=== PATIENT | female | born 1995 | race Caucasian/White ===

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

== ENCOUNTER 2017-01-12 18:09 | Emergency (ER) | payer MEDICAID, OTHER ==
--- NOTE | 2017-01-12 19:11 | ER Document Report ---
ED ENT - General Chief Complaint: Sore Throat Stated Complaint: SORE THROAT Time Seen by Provider: 01/12/17 18:46 Mode of Arrival: Medic Information source: Patient Notes: 21-year-old female presents to ED for complaint of sore throat, bilateral earache, runny nose, cough, and diarrhea 2 days. She denies any fever. States she did not have any thing for pain. States she is allergic to ibuprofen. TRAVEL OUTSIDE OF THE [place] IN LAST 30 DAYS: No - HPI Patient complains to provider of: Ear problem, Nose problem, Throat problem Onset: Other - 2 days Onset/Duration: Gradual Quality of pain: Achy, Sharp Severity: Moderate Context: Recent Illness Location of pain: Ears, Nose, Sinus, Other Associated symptoms: Cough, Ear pain, Runny nose, Sinus pain, Sinus drainage, Sore throat, Other - Diarrhea. denies: Fever Similar symptoms previously: Yes Recently seen / treated by doctor: No - Related Data Allergies/Adverse Reactions: ibuprofen Allergy (Verified 01/12/17 18:19) lamotrigine [From Lamictal] Allergy (Verified 01/12/17 18:19) Penicillins Allergy (Verified 01/12/17 18:19) Past Medical History - General Information source: Patient - Social History Smoking Status: Current Every Day Smoker Cigarette use (# per day): Yes - Half a pack a day Chew tobacco use (# tins/day): No Smoking Education Provided: Yes - Less than 2 minutes Frequency of alcohol use: None Drug Abuse: None Occupation: None Lives with: Family Family History: Malignancy. denies: Arthritis, CAD, COPD, CVA, DM, Hyperlipidemia, Hypertension, Thyroid Disfunction Patient has suicidal ideation: No Patient has homicidal ideation: No Renal/ Medical History: Denies: Hx Peritoneal Dialysis - Immunizations Hx Diphtheria, Pertussis, Tetanus Vaccination: - unknown Physical Exam - Vital signs Vitals: Temp Pulse Resp BP Pulse Ox 98.4 F 86 18 125/91 H 99 01/12/17 18:19 01/12/17 18:19 01/12/17 18:19 01/12/17 18:19 01/12/17 18:19 Interpretation: Normal - General General appearance: Appears well, Alert - HEENT Head: Normocephalic, Atraumatic Eyes: Normal Pupils: PERRL Ears: Normal External canal: Normal Tympanic membrane: Injected. No: Bulging, Loss of landmarks, Perforation, Retracted, Serous effusion Sinus: Normal Nasal: Purulent discharge, Swelling Mouth/Lips: Normal Mucous membranes: Normal Pharynx: Post nasal drainage. No: Erythema, Exudate Neck: Normal - Respiratory Respiratory status: No respiratory distress Chest status: Nontender Breath sounds: Nonproductive cough Chest palpation: Normal - Cardiovascular Rhythm: Regular Heart sounds: Normal auscultation Murmur: No - Abdominal Inspection: Normal Distension: No distension Bowel sounds: Normal Tenderness: Nontender Organomegaly: No organomegaly - Back Back: Normal, Nontender - Extremities General upper extremity: Normal inspection, Nontender, Normal color, Normal ROM , Normal temperature General lower extremity: Normal inspection, Nontender, Normal color, Normal ROM , Normal temperature, Normal weight bearing. No: Neli's sign - Neurological Neuro grossly intact: Yes Cognition: Normal Orientation: AAOx4 Osbaldo Coma Scale Eye Opening: Spontaneous [place]baldo Coma Scale Verbal: Oriented [place] Coma Scale Motor: Obeys Commands [place] Coma Scale Total: 15 Speech: Normal Motor strength normal: LUE, RUE, LLE, RLE Sensory: Normal - Psychological Associated symptoms: Normal affect, Normal mood - Skin Skin Temperature: Warm Skin Moisture: Dry Skin Color: Normal Course - Re-evaluation Re-evalutation: 01/12/17 20:07 Discussed strep test results with patient. Patient given Tylenol and Decadron for her sore throat that makes it difficult for her to swallow. Will discharge home to follow-up with her primary doctor. - Vital Signs Vital signs: Temp Pulse Resp BP Pulse Ox 98.4 F 86 18 125/91 H 99 01/12/17 18:19 01/12/17 18:19 01/12/17 18:19 01/12/17 18:19 01/12/17 18:19 Discharge - Discharge Clinical Impression: Viral sore throat URI (upper respiratory infection) Qualifiers: URI type: unspecified URI Qualified Code(s): J06.9 - Acute upper respiratory infection, unspecified Disposition: HOME, SELF-CARE Instructions: Family Physicians / Practices Additional Instructions: UPPER RESPIRATORY ILLNESS: You have a viral infection of the respiratory passages -- a "cold." This common infection causes nasal congestion, drainage, and often sore throat and cough. It is highly contagious. The disease usually lasts about 10 to 14 days. There is no "cure" for the viral infection -- it must run its course. If there is a complication, such as bacterial infection in the nose, sinuses, middle ear, or bronchial tubes, antibiotics may be required. The antibiotics won't affect the virus. Drink plenty of fluids. A humidifier may help. An expectorant medication or decongestant may make you more comfortable. Use acetaminophen or ibuprofen for fever or aches. See the doctor if fever persists over two days, if there is any significant worsening of your symptoms, or if you simply fail to improve as expected. STEROID MEDICATION: You have been given an injection of or oral medicine of the cortisone/ steroid class. This medication is used to control inflammation or allergy. Tom t is usually only given for a short period of time, until the acute process subsides. There are usually no side effects from short-term use of cortisone-like medications. Some persons feel an increased sense of well-being and are not sleepy at bedtime. Long-term use of cortisone medications is best avoided, unless required for a severe condition. If your condition does not remit, or relapses after the course of corticosteroid medication, you should consult your physician. USE OF ACETAMINOPHEN (Tylenol): Acetaminophen may be taken for pain relief or fever control. It's much safer than aspirin, offering a wider range of "safe" dosages. It is safe during . Some brand names are Tylenol, Panadol, Datril, Anacin 3, Tempra, and Liquiprin. Acetaminophen can be repeated every four hours. The following are maximum recommended dosages: >89 pounds or adults 650 mg to 900 mg Acetaminophen can be repeated every four hours. Maximum dose not to exceed 4000 mg a day. SMOKING: If you smoke, you should stop smoking. The tar and chemicals in cigarette smoke are harmful. Smoking has been shown to cause: emphysema chronic bronchitis lung cancer mouth and throat cancer stomach and pancreas cancer premature aging defects In addition, smoking increases ear and lung infections in children of smokers. FOLLOW-UP CARE: If you have been referred to a physician for follow-up care, call the physician s office for an appointment as you were instructed or within the next two days. If you experience worsening or a significant change in your symptoms, notify the physician immediately or return to the Emergency Department at any time for re-evaluation. Forms: Elevated Blood Pressure, Smoking Cessation Education
[2017-01-12] MEDS ORDERED: ACETAMINOPHEN 325 MG TABLET PO ONE (19:52)
[2017-01-12] MEDS ORDERED: DEXAMETHASONE SOD PHOS INJ 10 MG/1 ML VIAL IM ONE (19:54)
[2017-01-12 20:11] VITALS: BP 136/78
== END 2017-01-12 20:10 | disposition home or self-care (01) ==
LOC: ER 18:09
DX: J02.8 Acute pharyngitis due to other specified organisms (principal); B97.89 Other viral agents as the cause of diseases classified elsewhere; J06.9 Acute upper respiratory infection, unspecified; H92.03 Otalgia, bilateral; R05 Cough; R19.7 Diarrhea, unspecified; J34.89 Other specified disorders of nose and nasal sinuses; F17.210 Nicotine dependence, cigarettes, uncomplicated; Z71.6 Tobacco abuse counseling; Z88.6 Allergy status to analgesic agent; Z88.0 Allergy status to penicillin; Z88.8 Allergy status to other drugs, medicaments and biological substances
CPT/HCPCS: 99283; 96372; 87070; 87880; J3490; J1100

== ENCOUNTER 2017-01-28 22:56 | Emergency (ER) | payer MEDICAID ==
[2017-01-28 23:36] VITALS: BP 116/73
== END 2017-01-29 01:00 | disposition left against medical advice (07) ==
LOC: ER 22:56
DX: Z53.21 Procedure and treatment not carried out due to patient leaving prior to being seen by health care provider (principal)

== ENCOUNTER 2017-05-02 15:17 | Emergency (ER) | payer MEDICAID ==
[2017-05-02 15:24] VITALS: BP 111/60
== END 2017-05-02 15:43 | disposition left against medical advice (07) ==
LOC: ER 15:17
DX: Z53.9 Procedure and treatment not carried out, unspecified reason (principal)

== ENCOUNTER 2018-02-05 20:14 | Emergency (ER) | payer MEDICARE, MEDICAID ==
[2018-02-05 20:42] LABS: ABSOLUTE EOSINOPHILS # (AUTO) 0.2 10^3/uL (0.0-0.6); ABSOLUTE LYMPHOCYTES (AUTO) 1.7 10^3/uL (0.5-4.7); ABSOLUTE MONOCYTES (AUTO) 0.3 10^3/uL (0.1-1.4); ABSOLUTE NEUT (AUTO) 4.4 10^3/uL (1.7-8.2); BASOPHILS % (AUTO) 0.4 % (0-2); EOSINOPHILS % (AUTO) 2.5 % (0-6); HEMATOCRIT 39.5 % (36.0-47.0); LYMPHOCYTES % (AUTO) 25.7 % (13-45); MEAN CORPUSCULAR HEMOGLOBIN 30.7 pg (27.0-33.4); MEAN CORPUSCULAR HGB CONC 35.4 g/dL (32.0-36.0); MEAN CORPUSCULAR VOLUME 87 fl (80-97); MONOCYTES % (AUTO) 5.1 % (3-13); PLATELET COUNT 194 10^3/uL (150-450); RED BLOOD COUNT 4.56 10^6/uL (3.72-5.28); RED CELL DISTRIBUTION WIDTH 12.6 % (11.5-14.0); SEGMENTED NEUTROPHILS % (AUTO) 66.3 % (42-78); TOTAL CELLS COUNTED % (AUTO) 100 %; WHITE BLOOD COUNT 6.6 10^3/uL (4.0-10.5)
--- NOTE | 2018-02-05 20:42 | ER Document Report ---
ED GI/ - General Chief Complaint: Vag Bleeding, +preg <12wks Stated Complaint: VAGINAL BLEEDING Time Seen by Provider: 02/05/18 20:33 Notes: Patient is a 22-year-old female who comes emergency department for chief complaint of intermittent lower abdominal cramps and vaginal bleeding for the past week. She is at 12 weeks. She states she was evaluated by [facility] MACHINE in an office 1 month ago and told that she was 8 weeks along. She denies flank pain, vomiting, fever, vaginal discharge. She is taking vitamins, denies any other medications, denies any medical history. TRAVEL OUTSIDE OF THE [place] IN LAST 30 DAYS: No - Related Data Allergies/Adverse Reactions: ibuprofen Allergy (Verified 05/02/17 15:22) lamotrigine [From Lamictal] Allergy (Verified 05/02/17 15:22) Penicillins Allergy (Verified 05/02/17 15:22) Past Medical History - General Information source: Patient - Social History Smoking Status: Never Smoker Frequency of alcohol use: None Drug Abuse: None Lives with: Family Family History: Malignancy. denies: Arthritis, CAD, COPD, CVA, DM, Hyperlipidemia, Hypertension, Thyroid Disfunction Renal/ Medical History: Denies: Hx Peritoneal Dialysis Psychiatric Medical History: Reports: Hx Anxiety Surgical Hx: Negative - Immunizations Immunizations up to date: Yes Hx Diphtheria, Pertussis, Tetanus Vaccination: Yes - unknown Review of Systems - Review of Systems Constitutional: No symptoms reported EENT: No symptoms reported Cardiovascular: No symptoms reported Respiratory: No symptoms reported Gastrointestinal: See HPI Genitourinary: See HPI Female Genitourinary: See HPI Musculoskeletal: No symptoms reported Skin: No symptoms reported Hematologic/Lymphatic: No symptoms reported Neurological/Psychological: No symptoms reported Physical Exam - Notes Notes: GENERAL: Alert. No acute distress. HEAD: Normocephalic, atraumatic. EYES: Pupils equal, round, and reactive to light. Extraocular movements intact. ENT: Oral mucosa moist, tongue midline. NECK: Full range of motion. Supple. Trachea midline. LUNGS: Clear to auscultation bilaterally, no wheezes, rales, or rhonchi. No respiratory distress. HEART: Regular rate and rhythm. No murmur ABDOMEN: Soft, non-tender. Non-distended. Bowel sounds present in all 4 quadrants. EXTREMITIES: Moves all 4 extremities spontaneously. No edema, normal radial and dorsalis pedis pulses bilaterally. No cyanosis. BACK: no cervical, thoracic, lumbar midline tenderness. No saddle anesthesia, normal distal neurovascular exam. NEUROLOGICAL: Alert and oriented x3. Normal speech. [cranial nerves II through XII grossly intact]. PSYCH: Patient restless, speaks impatiently SKIN: Warm, dry, normal turgor. No rashes or lesions noted. Course - Re-evaluation Re-evalutation: Patient already had her labs drawn, states she wants the labs done but she refuses ultrasound. I explained that I could not inform her whether or not she had a in the uterus or evaluate the current status without an ultrasound, could not rule out developing miscarriage, ectopic , etc. She still states that she does not have time to have an ultrasound and she refuses. Patient asking for her results, I explained that I would do look at her workup to this point and then I would be back in a few minutes. CBC unremarkable, hCG is low, urine suggesting possible early infection although patient has no dysuria or flank pain. Urine culture placed. I went back into the room a few minutes later to discuss workup and discharge instructions and she had refused additional workup but patient was gone. I cycled back later, questioedn the nurse, apparently patient had left. Patient eloped. - Laboratory Result Diagrams: 02/05/18 20:30 Laboratory results interpreted by me: 02/05/18 02/05/18 20:30 20:55 Beta HCG, Quant 645.28 H Urine Urobilinogen 4.0 H Ur Leukocyte Esterase SMALL H Discharge - Discharge Clinical Impression: Vaginal bleeding affecting early , Abdominal cramping affecting Condition: Stable Disposition: ELOPED Additional Instructions: You have declined an ultrasound today, at this time your status is uncertain because of this. Your hormone is low however suggesting either early or developing miscarriage. I recommend that you have close follow-up for ultrasound and additional management (either at the ED or with your OBGYN). We have a urine culture growing in our lab. Return for any concerning symptoms including heavy bleeding, passing out, severe pain, fever, or any other concerning symptoms.
[2018-02-05 21:19] LABS: APPEARANCE,URINE SLIGHTLY-CLOUDY; BILIRUBIN,URINE NEGATIVE (NEGATIVE); COLOR,URINE YELLOW; GLUCOSE, URINE NEGATIVE (NEGATIVE); KETONES,URINE NEGATIVE (NEGATIVE); LEUKOCYTE ESTERASE,URINE SMALL (NEGATIVE); NITRITE,URINE NEGATIVE (NEGATIVE); PROTEIN,URINE NEGATIVE (NEGATIVE); URINE SPECIFIC GRAVITY 1.013
== END 2018-02-05 22:09 | disposition left against medical advice (07) ==
LOC: ER 20:14
DX: O20.9 Hemorrhage in early pregnancy, unspecified (principal); O26.891 Other specified pregnancy related conditions, first trimester; R10.30 Lower abdominal pain, unspecified; R45.1 Restlessness and agitation; Z79.899 Other long term (current) drug therapy; Z3A.12 12 weeks gestation of pregnancy; Z88.6 Allergy status to analgesic agent; Z88.8 Allergy status to other drugs, medicaments and biological substances; Z88.0 Allergy status to penicillin; Z53.20 Procedure and treatment not carried out because of patient's decision for unspecified reasons
CPT/HCPCS: 36415; 81001; 84702; 85025; 86900; 86901; 87086; 99281

== ENCOUNTER 2018-07-16 11:12 | Emergency (ER) | payer MEDICARE, MEDICAID ==
[2018-07-16 12:59] LABS: ABSOLUTE EOSINOPHILS # (AUTO) 0.3 10^3/uL (0.0-0.6); ABSOLUTE LYMPHOCYTES (AUTO) 1.4 10^3/uL (0.5-4.7); ABSOLUTE MONOCYTES (AUTO) 0.5 10^3/uL (0.1-1.4); EOSINOPHILS % (AUTO) 3.9 % (0-6); HEMATOCRIT 43.5 % (36.0-47.0); HEMOGLOBIN 14.9 g/dL (12.0-15.5); LYMPHOCYTES % (AUTO) 20.1 % (13-45); MEAN CORPUSCULAR HEMOGLOBIN 29.7 pg (27.0-33.4); MEAN CORPUSCULAR HGB CONC 34.4 g/dL (32.0-36.0); MEAN CORPUSCULAR VOLUME 86 fl (80-97); MONOCYTES % (AUTO) 6.4 % (3-13); PLATELET COUNT 205 10^3/uL (150-450); RED BLOOD COUNT 5.04 10^6/uL (3.72-5.28); SEGMENTED NEUTROPHILS % (AUTO) 69.6 % (42-78); TOTAL CELLS COUNTED % (AUTO) 100 %; WHITE BLOOD COUNT 7.1 10^3/uL (4.0-10.5)
[2018-07-16 13:19] LABS: ALANINE AMINOTRANSFERASE 19 U/L (9-52); ALBUMIN 4.4 g/dL (3.5-5.0); ALKALINE PHOSPHATASE 72 U/L (38-126); ANION GAP 14 (5-19); ASPARTATE AMINO TRANSFERASE 24 U/L (14-36); BILIRUBIN,DIRECT 0.3 mg/dL (0.0-0.4); BILIRUBIN,TOTAL 1.5 mg/dL (0.2-1.3); BLOOD UREA NITROGEN 16 mg/dL (7-20); CALCIUM 9.9 mg/dL (8.4-10.2); CARBON DIOXIDE 25 mmol/L (22-30); CHLORIDE 102 mmol/L (98-107); GLUCOSE 79 mg/dL (75-110); POTASSIUM 4.4 mmol/L (3.6-5.0); SODIUM 140.7 mmol/L (137-145); TOTAL PROTEIN 7.2 g/dL (6.3-8.2)
[2018-07-16 13:28] LABS: ALCOHOL < 10 mg/dL (NONE DETECTED)
[2018-07-16 13:29] LABS: ACETAMINOPHEN < 10 ug/mL (10-30); SALICYLATE < 1.0 mg/dL (2.0-20.0)
--- NOTE | 2018-07-16 16:39 | ER Document Report ---
ED Substance Abuse / Acc. OD <LATRELL GOMES - Last Filed: 07/16/18 17:07> - General TRAVEL OUTSIDE OF THE [place] IN LAST 30 DAYS: No <JOE SANCHEZ - Last Filed: 07/20/18 18:23> - General Chief Complaint: Possible Overdose Stated Complaint: POSSIBLE OVERDOSE Time Seen by Provider: 07/16/18 11:25 Notes: Brought in by EMS with possible overdose. Found passed out at the [facility]. Pt says she has been using crack, methampphetamine, clonazapame and Ambien. She changes her story as to how she is using each of them, snorting or orally. Says she loves meth and wants to get high now. EMS gave 5 mg Versed IM. Combative and hitting at staff and spitting at them as well. Uncooperative. 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 Seen here for psych issues in the past. Says she lives locally with her grandmother. Says she has schizophrenia, bipolar, PTSD, ADHD, and depression. Denies suicidal ideation. (JOE SANCHEZ) - Related Data Allergies/Adverse Reactions: ibuprofen Allergy (Verified 05/02/17 15:22) lamotrigine [From Lamictal] Allergy (Verified 05/02/17 15:22) Penicillins Allergy (Verified 05/02/17 15:22) Past Medical History - Social History Smoking Status: Current Every Day Smoker Drug Abuse: Cocaine, Marijuana, Methamphetamine, Prescription drugs Family History: Malignancy. denies: Arthritis, CAD, COPD, CVA, DM, Hyperlipidemia, Hypertension, Thyroid Disfunction Patient has suicidal ideation: No Patient has homicidal ideation: No Psychiatric Medical History: Reports: Hx Anxiety, Hx Bipolar Disorder, Hx Dementia, Hx Depression, Hx Schizophrenia - Immunizations Immunizations up to date: Yes Hx Diphtheria, Pertussis, Tetanus Vaccination: Yes - unknown <JOE SANCHEZ - Last Filed: 07/20/18 18:23> Review of Systems - Review of Systems -: Yes ROS unobtainable due to patient's medical condition - patient won't answer questions. <JOE SANCHEZ - Last Filed: 07/20/18 18:23> Physical Exam - Vital signs Interpretation: Normal - General General appearance: Combative, Other - argumentative and uncooperative In distress: Moderate - HEENT Head: Normocephalic, Atraumatic Eyes: Normal Extraocular movements intact: Yes Pupils: PERRL Mucous membranes: Normal, Moist Neck: Normal - Respiratory Respiratory status: No respiratory distress Chest status: Nontender Chest palpation: Normal - Cardiovascular Rhythm: Regular Normal capillary refill: Yes - Abdominal Inspection: Normal Distension: No distension Tenderness: Nontender - Back Back: Normal - Extremities General upper extremity: Normal inspection, Nontender, Normal ROM General lower extremity: Normal inspection, Nontender, Normal ROM - Neurological Neuro grossly intact: Yes Cognition: No: Confused, Inattentive Orientation: AAOx4 Speech: Normal - slightly slurred - Psychological Associated symptoms: Aggressive, Agitated, Angry, Combative, Restlessness, Uncooperative. No: Circumferential speech, Flight of ideas, Paranoid - Skin Skin Temperature: Warm Skin Color: Normal <JOE SANCHEZ - Last Filed: 07/20/18 18:23> - Vital signs Vitals: Temp Pulse Resp BP 97.7 F 99 20 132/83 H 07/16/18 17:51 07/16/18 17:51 07/16/18 17:51 07/16/18 17:51 Course - Laboratory Result Diagrams: 07/16/18 12:40 07/16/18 12:40 <LATRELL GOMES - Last Filed: 07/16/18 17:07> - Laboratory Result Diagrams: 07/16/18 12:40 07/16/18 12:40 <JOE SANCHEZ - Last Filed: 07/20/18 18:23> - Re-evaluation Re-evalutation: 07/16/18 16:38 Patient is now talking more normally and not slurring speech. She denies any suicidal intent. Says she has someone who can come pick her up. We were unable to obtain a urinalysis, even with an attempt by catheterization. I believe that patient now has ability and judgement to make her own health care decisions so she is being discharged. (JOE SANCHEZ) - Vital Signs Vital signs: Temp Pulse Resp BP Pulse Ox 97.7 F 99 20 132/83 H 07/16/18 17:51 07/16/18 17:51 07/16/18 17:51 07/16/18 17:51 - Laboratory Laboratory results interpreted by me: 07/16/18 12:40 Total Bilirubin 1.5 H Salicylates < 1.0 L Acetaminophen < 10 L Discharge <LATRELL GOMES - Last Filed: 07/16/18 17:07> <JOE SANCHEZ - Last Filed: 07/20/18 18:23> - Discharge Clinical Impression: Substance abuse Condition: Stable Disposition: HOME, SELF-CARE Additional Instructions: COCAINE ABUSE: Cocaine causes many dangerous medical problems. Problems can occur even with "usual" amounts. Cocaine affects judgement, creating a sense of invulnerability. Cocaine users often make bad decisions that seem "great" at the time. Most cocaine users eventually will be hurt by bad job performance, damaged personal relations, crime, and unsafe sexual practices. Toxic effects of cocaine can include seizures, hallucinations, delusions, high blood pressure, heart damage, or sudden . There's always the risk of a "bad batch." But heart attacks, brain hemorrhages, or cardiac arrest can occur unpredictably even with "normal" use. Injection of cocaine is risky for abscesses, endocarditis (heart infection) , pneumonia, and AIDS. Withdrawal from cocaine often causes anxiety and drug cravings. Some users become paranoid and psychotic. Many treatment programs are available, but you must make the decision to quit. Medication can be prescribed to control the symptoms of cocaine toxicity (beta blockers or benzodiazepines). Withdrawal symptoms may require tranquilizers. AMPHETAMINE / METHAMPHETAMINE ABUSE: Amphetamines are addicting stimulants. Amphetamines overstimulate the nervous system and give a false feeling of power and mastery. These drugs may be obtained as prescription pills for weight loss, narcolepsy, or attention- deficit disorder. More often they're bought as an illegal street drug, methamphetamine (crank, crystal, speed). Using amphetamines repeatedly can lead to serious medical problems including malnutrition, severe depression, and paranoia. It can take increasing amounts to feel good. Eventually, there will be a "burn out." When you go off amphetamines there is a period of depression that may last for weeks or even months. High doses of amphetamines can cause seizures, confusion, hallucinations, delusions, high blood pressure, muscle damage, heart damage, or sudden . Many times these deadly complications occur even with "normal" doses. Injection of amphetamines is risky for developing abscesses, endocarditis ( heart infection), pneumonia, and AIDS. Withdrawal from amphetamines often causes anxiety, depression, and drug cravings. Some users become paranoid and psychotic. There may be cramps, nausea , and vomiting. Many treatment programs are available, but you must make the decision to quit. Medication can be prescribed to control the symptoms of amphetamine toxicity (beta blockers or benzodiazepines). Withdrawal symptoms may require tranquilizers. OVERDOSE / INGESTION: You have taken more medication than you should have. After your evaluation and care, it is felt that your overdose is not likely to be harmful or of any significant consequences to you and you are being discharged. In the future, you should be careful not to take more medications than what is prescribed for you. Although your overdose does not seem to be of any danger to you at this time, if you develop any unusual or unexpected symptoms after your discharge, you should return to the Emergency Department immediately for re-evaluation. INSTRUCTIONS FOR HOME CARE FOLLOWING DRUG OVERDOSAGE: The doctor feels it's safe for you to go home. You will need to be observed. If charcoal and a laxative was given to you, expect some loose black stools soon. Take no medications unless approved by a physician, including alcohol. If drowsy, lie on your stomach or side for sleeping to avoid aspiration if vomiting occurs. Take only liquids by mouth until there is no more nausea. FOR THE OBSERVER: Observe the patient for the next 24 hours and call or go to the hospital if any of the following are noted: prolonged or repeated vomiting, difficulty in arousing, convulsions (seizures or fits), fever, persistent cough, breathing that is too slow or too rapid, or confused or bizarre behavior. If a counselling visit has been arranged, make sure the patient attends. Call the physician or poison control if you have questions. FOLLOW-UP CARE: If you have been referred to a physician for follow-up care, call the physician s office for an appointment as you were instructed or within the next two days. If you experience worsening or a significant change in your symptoms, notify the physician immediately or return to the Emergency Department at any time for re-evaluation. Referrals: [facility] [Outside] - Follow up as needed [facility] [Outside] - Follow up in 3-5 days
[2018-07-16 17:52] VITALS: BP 132/83
--- NOTE | 2018-07-16 20:59 | EKG REPORT ---
SEVERITY:- OTHERWISE NORMAL ECG - SINUS TACHYCARDIA : Confirmed by: Rosa Silverman MD 16-Jul-2018 20:58:20
--- NOTE | 2018-07-17 13:30 | PSYCHOLOGICAL NOTE ---
Psych Note - Psych Note Date seen by psych provider: 07/16/18 Time seen by psych provider: 13:00 Psych Note: Reason for Consult: possible overdose Patient came in via EMS for possible overdose. It is unclear of what she took, she keeps changing what she says. She denies heroin but reports doing meth, ambien, and a crack pipe was found on her by EMS. Patient was found by a bystander at [facility] passed out. Patient disclosed that she injected meth and has smoked some weed however states she does not want her staff weapons officer notified. She denies doing anything to harm herself only to get high. Patient then stated that she may have snorted some crack. Patient is and orientated to person and place. Patient is clearly under the influence and is currently in four-point restraints for her and others' safety because she became combative with staff. Patient had difficulty focusing on clinician but was able to disclose that she was out front of a store prior to being brought to [facility]. Chart review conducted Patient was seen by behavioral health team on 08/14/2016. There was concern that the patient was presenting manic and engaging in risky behaviors that can in danger to herself and others. She was sent to [facility] for inpatient psychiatric treatment during that visit. It is noted the patient disclosed both marijuana and meth use during that visit. Patient also has a history of both verbal and physical aggression. 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 insight, judgment, and impulse control. Patient will need to be assessed once no longer under the influence. Patient will be reevaluated by the behavioral health team unless attending physician deems discharge is appropriate once no longer under the influence. Dr. Major was consulted on the care and management of this patient; attending physician is in agreement with recommendations and disposition.
== END 2018-07-16 17:52 | disposition home or self-care (01) ==
LOC: ER 11:12
DX: F19.10 Other psychoactive substance abuse, uncomplicated (principal); T50.901A Poisoning by unspecified drugs, medicaments and biological substances, accidental (unintentional), initial encounter; F17.200 Nicotine dependence, unspecified, uncomplicated
CPT/HCPCS: 36415; 80053; 80307; 84703; 85025; 93005; 93010; 99284

== ENCOUNTER 2018-08-28 00:18 | Emergency (ER) | payer MEDICARE, MEDICAID ==
[2018-08-28 00:59] VITALS: BP 97/68
--- NOTE | 2018-08-28 02:11 | ER Document Report ---
ED General - General Chief Complaint: Back Pain Stated Complaint: FEVER Time Seen by Provider: 08/28/18 02:11 TRAVEL OUTSIDE OF THE [place] IN LAST 30 DAYS: No - Related Data Allergies/Adverse Reactions: ibuprofen Allergy (Verified 05/02/17 15:22) lamotrigine [From Lamictal] Allergy (Verified 05/02/17 15:22) Penicillins Allergy (Verified 05/02/17 15:22) Past Medical History - Social History Smoking Status: Current Every Day Smoker Chew tobacco use (# tins/day): No Frequency of alcohol use: None Drug Abuse: Heroin, Methamphetamine Family History: Malignancy. denies: Arthritis, CAD, COPD, CVA, DM, Hyperlipidemia, Hypertension, Thyroid Disfunction Patient has suicidal ideation: No Patient has homicidal ideation: No Renal/ Medical History: Denies: Hx Peritoneal Dialysis Psychiatric Medical History: Reports: Hx Anxiety, Hx Bipolar Disorder, Hx Dementia, Hx Depression, Hx Schizophrenia - Immunizations Immunizations up to date: Yes Hx Diphtheria, Pertussis, Tetanus Vaccination: Yes - unknown Physical Exam - Vital signs Vitals: Temp Pulse Resp BP Pulse Ox 98.1 F 80 16 97/68 L 97 08/28/18 00:55 08/28/18 00:55 08/28/18 00:55 08/28/18 00:55 08/28/18 00:55 Course - Vital Signs Vital signs: Temp Pulse Resp BP Pulse Ox 98.1 F 80 16 97/68 L 97 08/28/18 00:55 08/28/18 00:55 08/28/18 00:55 08/28/18 00:55 08/28/18 00:55
--- NOTE | 2018-08-28 02:23 | ER Document Report ---
Doctor's Note Notes: 08/28/18 02:22 22-year-old female with admitted IV drug use, methamphetamine use presents with complaint of low back pain and fever. Per nursing patient eloped prior to my exam.
== END 2018-08-28 02:46 | disposition left against medical advice (07) ==
LOC: ER 00:18
DX: Z53.21 Procedure and treatment not carried out due to patient leaving prior to being seen by health care provider (principal)